=== PATIENT | male | born 1995 | race Caucasian/White ===

== ENCOUNTER 2017-11-15 23:20 | Emergency (ER) | payer MEDICAID ==
[~2017-11-15] VITALS: Ht 172.7 cm; Wt 62.5 kg
[2017-11-15 23:25] VITALS: BP 105/72
[2017-11-16] LABS: CLARITY,URINE CLEAR (Clear); COLOR,URINE YELLOW (Yellow); GLUCOSE, URINE NEGATIVE (Neg); KETONES,URINE NEGATIVE (Neg); LEUKOCYTE ESTERASE ,URINE NEGATIVE (Neg); NITRITES, URINE NEGATIVE (Neg); OCCULT BLOOD,URINE NEGATIVE (Neg); PROTEIN,URINE NEGATIVE (Neg); UROBILINOGEN,URINE 0.2 E.U/dL (0.2-1.0)
[2017-11-16 00:13] LABS: UA COLLECTION TYPE CLN CATCH MIDSTREAM
== END 2017-11-16 01:28 | disposition home or self-care (01) ==
LOC: ER 23:22
DX: N50.812 Left testicular pain (principal)
CPT/HCPCS: 81003; 99281; 99283